=== PATIENT | female | born 1980 | race Caucasian/White ===

== ENCOUNTER 2016-11-16 21:02 | Inpatient (IN) | payer OTHER ==
[2016-11-16] MEDS ORDERED: NS 1,000 ML IV ONE (21:38)
[2016-11-16] MEDS ORDERED: ONDANSETRON 4 MG/2 ML VIAL IVP ONE (21:39)
[2016-11-16] MEDS ORDERED: HYDROmorphONE/DILAUDID 1 MG/ML INJ IVP ONE ×2 (21:56→22:34)
[2016-11-16 22:00] LABS: % IMMATURE GRANULYOCYTES 0.4 % (0.0-1.1); ABSOLUTE IMMATURE GRANULOCYTES 0.07 10^3/uL (0.00-0.10); ADD DIFF? NO; ADD MORPH? NO; ADD SCAN? NO; ATYPICAL LYMPHOCYTE FLAG 0 (0-99); FRAGMENT RBC FLAG 0 (0-99); HEMATOCRIT 44.8 % (38.0-47.0); HEMOGLOBIN 15.1 g/dL (12.6-16.3); LEFT SHIFT FLG 0 (0-99); LIPEMIA HEMOLYSIS FLAG 80 (0-99); MEAN CELL HEMOGLOBIN 28.3 pg (27.9-34.1); MEAN CELL HEMOGLOBIN CONCENTR. 33.7 g/dL (32.4-36.7); MEAN CELL VOLUME 84.1 fL (81.5-99.8); MEAN PLATELET VOLUME 9.8 fL (8.7-11.7); PLATELET CLUMPS FLAG 0 (0-99); PLATELET COUNT 416 10^3/uL (150-400); RED BLOOD CELL COUNT 5.33 10^6/uL (4.18-5.33); RED CELL DISTRIBUTION WIDTH 13.6 % (11.5-15.2)
[2016-11-16 22:07] LABS: ALANINE AMINOTRANSFERASE 479 IU/L (9-52); ALBUMIN 4.9 g/dL (3.5-5.0); ALKALINE PHOSPHATASE 110 IU/L (38-126); ANION GAP 18 mEq/L (8-16); ASPARTATE AMINOTRANSFERASE 453 IU/L (14-46); BILIRUBIN,TOTAL 3.7 mg/dL (0.1-1.4); CALCIUM 10.4 mg/dL (8.5-10.4); CARBON DIOXIDE 23 mEq/l (22-31); CHLORIDE 102 mEq/L (97-110); CREATININE 0.8 mg/dL (0.6-1.0); GLOMERULAR FILTRATION RATE > 60; GLUCOSE 175 mg/dL (70-100); SODIUM 143 mEq/L (134-144); TOTAL PROTEIN 8.5 g/dL (6.3-8.2)
[2016-11-16 22:18] LABS: BILIRUBIN-UNCONJUGATED 0.7 mg/dL (0.0-1.1)
--- NOTE | 2016-11-16 22:30 | EDPHY ---
H & P Stated Complaint: mid abd pain with multipe episodes vomiting started aprox 1400 today Source: Patient Exam Limitations: No limitations - Personal History LMP (Females 10-55): 1-7 Days Ago - Medical/Surgical History Hx Asthma: No Hx Chronic Respiratory Disease: No Hx Diabetes: No Hx Cardiac Disease: No Hx Renal Disease: No Hx Cirrhosis: No Hx Alcoholism: No Hx HIV/AIDS: No Hx Splenectomy or Spleen Trauma: No Other PMH: Med hx-hypothyroidism,acne. Surg-[id number]-prk - Family History Significant Family History: No pertinent family hx - Social History Smoking Status: Never smoked Alcohol Use: Occasionally Drug Use: None Time Seen by Provider: 11/16/16 21:39 HPI/ROS: This patient presents with mid abdominal pain and periumbilical pain onset mid afternoon with 5 episodes of vomiting since ongoing nausea. She reports 7 in 10 achy pain with occasional sharp pains. This does radiate a bit to her back. She has not had this pain before. She notes some worsening with movement and notes no other exacerbating factors. She is brought in by her mother for further evaluation of her symptoms. No other complaints. No other exacerbating factors noted. ROS: Constitutional: No fevers HEENT: No recent URI symptoms or other complaints on pulmonary: No shortness of breath. Cardiovascular: No heart palpitations or chest pain GI: No belly distention. No hematemesis. No coffee-ground emesis. : No complaints Integumentary: No skin rash. Her lips appear pale currently but her mother process baseline for this patient. Neuro: No complaints Endocrine: No complaints Completely symptoms otherwise negative. (Eze Blas) - Medical/Surgical History PMH: No prior belly surgery. (Eze Blas) - Physical Exam Exam: Vital signs normal. General Appearance: Alert, no distress. Eyes: Pupils equal and round no pallor or injection. ENT, Mouth: Mucous membranes moist. Respiratory: There are no retractions, lungs are clear to auscultation. Cardiovascular: Regular rate and rhythm. Gastrointestinal: Normoactive to slightly hypoactive bowel sounds, soft, mild epigastric tenderness and moderate right upper quadrant tenderness. No rebound tenderness. Neurological: GCS 15 Skin: Warm and dry, no rashes. Musculoskeletal: Neck is supple nontender. Extremities are symmetrical, full range of motion. Psychiatric: Mood and affect normal DIFFERENTIAL DIAGNOSIS: After history and physical exam differential diagnosis was considered for cholecystitis, hepatitis, pancreatitis, gastritis (Eze Blas) Constitutional: Initial Vital Signs Temperature (C) 97.7 F 11/16/16 21:30 Heart Rate 98 11/16/16 21:30 Respiratory Rate 16 11/16/16 21:30 Blood Pressure 118/83 H 11/16/16 21:30 O2 Sat (%) 96 11/16/16 21:30 O2 Delivery Mode Room Air Allergies/Adverse Reactions: neomycin Allergy (Verified 11/16/16 21:29) Home Medications: Medication Instructions Recorded Bcp 11/16/16 Levothyroxine [Synthroid 88 mcg 11/16/16 (*)] Multi-Day Vitamins 11/16/16 Spironolactone [Aldactone] 11/16/16 Medical Decision Making ED Course/Re-evaluation: IV normal saline bolus Zofran with some relief Dilaudid with minimal relief Upon reviewing labs with significantly elevated lipase and LFTs, called an medical equipment technician to perform gallbladder ultrasound for possible gallstone pancreatitis. Toradol IV and repeat Dilaudid Ordered 2 more L of saline bolus I spoke with Dr. Liza Alcala, hospitalist at [facility] accepts patient for admission to a [facility] bed. I spoke with Dr. Vianca Lutz, [facility] for the [facility] [employer] who will follow up with the gallbladder ultrasound results. Patient awaits a bed at [facility] for her admission. (Eze Blas) Other Provider: Patient signed out to me at change of shift by Dr. Blas, awaiting abdominal US prior to admission. Patient has elevated LFTs and and elevated lipase. US verbal report by Dr. Flores shows a few gallstones, no significant inflammation , coarsened pancreas consistent with pancreatitis and no CBD dilatation. Patient is more comfortable at this time. Awaiting transport to [facility]. (Domenica Lutz) - Data Points Laboratory Results: Laboratory Results 11/16/16 21:45 11/16/16 21:45 11/16/16 11/16/16 11/16/16 21:45 21:45 21:45 WBC 18.08 10^3/uL H 10^3/uL (3.80-9.50) RBC 5.33 10^6/uL 10^6/uL (4.18-5.33) Hgb 15.1 g/dL g/dL (12.6-16.3) Hct 44.8 % % (38.0-47.0) MCV 84.1 fL fL (81.5-99.8) MCH 28.3 pg pg (27.9-34.1) MCHC 33.7 g/dL g/dL (32.4-36.7) RDW 13.6 % % (11.5-15.2) Plt Count 416 10^3/uL H 10^3/uL (150-400) MPV 9.8 fL fL (8.7-11.7) Neut % (Auto) 89.3 % H % (39.3-74.2) Lymph % (Auto) 5.0 % L % (15.0-45.0) Highlands % (Auto) 5.0 % % (4.5-13.0) Eos % (Auto) 0.1 % L % (0.6-7.6) Baso % (Auto) 0.2 % L % (0.3-1.7) Nucleat RBC Rel Count 0.0 % % (0.0-0.2) Absolute Neuts (auto) 16.14 10^3/uL H 10^3/uL (1.70-6.50) Absolute Lymphs (auto) 0.90 10^3/uL L 10^3/uL (1.00-3.00) Absolute Monos (auto) 0.91 10^3/uL H 10^3/uL (0.30-0.80) Absolute Eos (auto) 0.02 10^3/uL L 10^3/uL (0.03-0.40) Absolute Basos (auto) 0.04 10^3/uL 10^3/uL (0.02-0.10) Absolute Nucleated RBC 0.00 10^3/uL 10^3/uL (0-0.01) Immature Gran % 0.4 % % (0.0-1.1) Immature Gran # 0.07 10^3/uL 10^3/uL (0.00-0.10) PT INR APTT Sodium 143 mEq/L mEq/L (134-144) Potassium 4.0 mEq/L mEq/L (3.5-5.2) Chloride 102 mEq/L mEq/L (97-110) Carbon Dioxide 23 mEq/l mEq/l (22-31) Anion Gap 18 mEq/L H mEq/L (8-16) BUN 9 mg/dL mg/dL (7-23) Creatinine 0.8 mg/dL mg/dL (0.6-1.0) Estimated GFR > 60 Glucose 175 mg/dL H mg/dL (70-100) Calcium 10.4 mg/dL mg/dL (8.5-10.4) Total Bilirubin 3.7 mg/dL H mg/dL (0.1-1.4) Conjugated Bilirubin 3.0 mg/dL H mg/dL (0.0-0.5) Unconjugated Bilirubin 0.7 mg/dL mg/dL (0.0-1.1) AST 453 IU/L H IU/L (14-46) ALT 479 IU/L H IU/L (9-52) Alkaline Phosphatase 110 IU/L IU/L (38-126) Total Protein 8.5 g/dL H g/dL (6.3-8.2) Albumin 4.9 g/dL g/dL (3.5-5.0) Lipase > 85965 IU/L H IU/L (23-300) Beta HCG, Qual NEGATIVE 11/16/16 21:40 WBC RBC Hgb Hct MCV MCH MCHC RDW Plt Count MPV Neut % (Auto) Lymph % (Auto) Highlands % (Auto) Eos % (Auto) Baso % (Auto) Nucleat RBC Rel Count Absolute Neuts (auto) Absolute Lymphs (auto) Absolute Monos (auto) Absolute Eos (auto) Absolute Basos (auto) Absolute Nucleated RBC Immature Gran % Immature Gran # PT 11.8 SEC L SEC (12.0-15.0) INR 0.89 (0.83-1.16) APTT 20.0 SEC L SEC (23.0-38.0) Sodium Potassium Chloride Carbon Dioxide Anion Gap BUN Creatinine Estimated GFR Glucose Calcium Total Bilirubin Conjugated Bilirubin Unconjugated Bilirubin AST ALT Alkaline Phosphatase Total Protein Albumin Lipase Beta HCG, Qual Medications Given: Discontinued Medications Hydromorphone HCl (Dilaudid) 0.4 mg IVP EDNOW ONE Stop: 11/16/16 21:57 Last Admin: 11/16/16 22:00 Dose: 0.4 mg Hydromorphone HCl (Dilaudid) 0.4 mg IVP EDNOW ONE Stop: 11/16/16 22:35 Last Admin: 11/16/16 23:09 Dose: 0.4 mg Sodium Chloride (Ns) 1,000 mls @ 0 mls/hr IV ONCE ONE PRN Reason: Wide Open Stop: 11/16/16 21:39 Last Admin: 11/16/16 21:51 Dose: 1,000 mls Sodium Chloride (Ns) 2,000 mls @ 0 mls/hr IV EDNOW ONE; Wide Open PRN Reason: Protocol Stop: 11/16/16 22:33 Last Admin: 11/16/16 23:08 Dose: 2,000 mls Ketorolac Tromethamine (Toradol) 15 mg IVP EDNOW ONE Stop: 11/16/16 22:35 Last Admin: 11/16/16 22:38 Dose: 15 mg Ondansetron HCl (Zofran) 4 mg IVP EDNOW ONE Stop: 11/16/16 21:40 Last Admin: 11/16/16 21:58 Dose: 4 mg Departure - Departure Disposition: [facility] Inpatient Acute Clinical Impression: Acute pancreatitis Qualifiers: Pancreatitis type: biliary Acute pancreatitis complication: unspecified Qualified Code(s): K85.10 - Biliary acute pancreatitis without necrosis or infection Condition: Fair
[2016-11-16] MEDS ORDERED: NS 2,000 ML IV ONE (22:32)
[2016-11-16] MEDS ORDERED: KETOROLAC 15 MG/1 ML SDV IVP ONE (22:34)
[2016-11-16 23:42] LABS: INR 0.89 (0.83-1.16); PROTIME(PATIENT) 11.8 SEC (12.0-15.0)
[2016-11-17] MEDS ORDERED: HYDROmorphONE/DILAUDID 1 MG/ML INJ IVP ONE (01:03)
[2016-11-17] MEDS ORDERED: HYDROmorphONE/DILAUDID 1 MG/ML INJ ONE (01:04)
[2016-11-17] MEDS: ONDANSETRON 4 MG/2 ML VIAL IVP PRN ×4 (02:58→18:26)
[2016-11-17] MEDS ORDERED: D50W 25 GM/50 ML SYR IVP PRN (03:31)
[2016-11-17 03:39] LABS: COLOR YELLOW; LEUKOCYTE ESTERASE,URINE NEGATIVE (NEGATIVE); NITRITE,URINE NEGATIVE (NEGATIVE)
[2016-11-17] MEDS: HYDROmorphONE/DILAUDID 1 MG/ML INJ IVP PRN ×3 (03:46→21:39)
[2016-11-17] MEDS ORDERED: D10W 250 ML PRN HYPOGLYCEMIA IV (04:00)
--- NOTE | 2016-11-17 04:57 | GHP ---
[f rep st] HISTORY AND PHYSICAL DATE OF ADMISSION: 11/17/2016 PRIMARY CARE PHYSICIAN: Unassigned. SOURCE: The patient provides history, appears reliable. Her EMR was also reviewed and case discusse d with ED provider. CHIEF COMPLAINT: Epigastric pain, nausea, vomiting. HISTORY OF PRESENT ILLNESS: This is a very pleasant 36-year-old female with past medical history sig nificant for hypothyroidism, seasonal allergies, cystic acne, hyperlipidemia, who [place] [facility] [place] [facility] [place] complaints of a several hour history of nausea, vomiting, and epigastri c pain. The patient reports that she was in her usual state of health until about 2:00 pm when she s tarted to develop epigastric aching pain with radiation to her back. The patient subsequently develo ped some intractable nausea and vomiting without any hematemesis. She denies any fevers, positive ch ills, felt cold and clammy. She reports her pain was as high as 7/10 pain with intermittent sharp pa ins. She denies any diarrhea, lower abdominal pain, or bloating. REVIEW OF SYSTEMS: GENERAL: Positive for chills. No fevers or sweats. SKIN: The patient reports h istory of acne, but no other rashes or sores. EYES: The patient denies any acute changes in vision or ocular pain. ENT: No congestion or sore throat. CV: The patient denies any chest pressure or p ain, but notes the upper abdominal lower chest epigastric pain. No lower extremity edema. RESPIRATO RY: Denies any shortness of breath or cough. GI: See HPI. : No dysuria or hematuria. MUSCULOS KELETAL: The patient denies any myalgias or joint pain. NEURO: The patient reports a little bit of headache with the onset of symptoms. No numbness, tingling, or focal weakness. PSYCH: The patient denies anxiety or depression. ALLERGIES: Neomycin, and the patient is lactose intolerant. HOME MEDICATIONS: Spironolactone for cystic acne, multivitamin, levothyroxine, control pill, a nd red rice yeast. PAST MEDICAL HISTORY: History significant for hypothyroidism, seasonal allergies, cystic acne, hyper lipidemia. PAST SURGICAL HISTORY: Significant for PRK and wisdom tooth extraction. FAMILY HISTORY: Mother with osteoarthritis and hyperlipidemia. Father with hyperlipidemia, hyperten soniya, and kidney stones. The patient with an aunt with gallbladder disease and [facility] with history of cancers. SOCIAL HISTORY: The patient is employed as RN at [employer]. She does not smoke. She h as rare alcohol consumption and denies any illicit drug use. The patient without any recent alcohol intake. CODE STATUS: Full. PHYSICAL EXAMINATION: VITAL SIGNS: Upon arrival to the emergency department, blood pressure 118/83, heart rate 98, respiratory rate 16, O2 saturation 96% on room air, temperature 36.5. Current vitals blood pressure 134/81, heart rate is 119, respiratory rate 14, O2 saturation 94% on room air, temper ature is 36.9. GENERAL: No acute distress. Pleasant adult female, who is resting quietly in bed. Her mother is at bedside. HEAD: Normocephalic, atraumatic. EYES: Extraocular muscles grossly inta ct. No scleral icterus or conjunctival injection. Pupils equal, round, react to light bilaterally a nd symmetric. ENT: Mucous membranes appear dry. No oropharyngeal erythema. Dentition intact. No nasal discharge. NECK: Supple. Trachea midline. CV: Regular rate and rhythm. Slightly tachycard ic without any murmurs, rubs, or gallops. Slightly distant heart sounds. No chest wall tenderness t o palpation. RESPIRATORY: Lungs are clear to auscultation bilaterally. No wheezes, rales, or rhonc hi. Breathing is unlabored. ABDOMEN: Hypoactive bowel sounds with tenderness to palpation in the e pigastric right upper quadrant region. Patient with negative Arriaga sign. No rebound or guarding ap preciated. Abdomen is not distended. : No suprapubic tenderness to palpation. No Washington catheter in place. MUSCULOSKELETAL: The patient's strength 5/5 in upper and lower extremities. The patient is able to sit up independently. NEURO: Cranial nerves grossly really normal. No focal deficits. Strength normal in extremities. PSYCH: Thought process content and questions are appropriate. The patient is awake, alert, and oriented x4. LABORATORY STUDIES: WBC is 18.0, H and H 15.1, 44.8, MCV of 84.1, platelet count is 416, 89.3% neutr ophils, no bands. PT is 11.8, INR 0.89, PTT is 20.0. Sodium is 143, potassium is 4.0, chloride 102, CO2 is 23, anion gap 18, BUN 9, creatinine 0.8, GFR gr eater than 60. Glucose is 175. Total bilirubin is 3.4, conjugated 3.0, unconjugated 0.7, ALT 479, A ST 453, alkaline phosphatase 110, total protein is 8.5, albumin is 4.9, lipase is greater than 20,000 . Beta HCG is negative. IMAGING: Abdominal ultrasound, report reviewed. Significant for cholelithiasis and coarsened echoge nicity in the pancreas seen with pancreatitis, common bile duct measuring 5 mm. No evidence of gallb ladder wall thickening, hyperemia, or pericholecystic fluid. ASSESSMENT AND PLAN: This is a pleasant 36-year-old female with history of hypothyroidism, hyperlipi demia, who presents to the emergency department with sudden onset epigastric pain, nausea, vomiting. 1. Pancreatitis, acute, likely secondary to cholelithiasis. Ultrasound was negative for any evidenc e of common bile duct dilation. The patient has significantly elevated LFTs as well as bilirubin. S he continues to have some epigastric pain. No history of chronic alcohol dependence. We will check an MRCP in the morning. 2. Acute abdominal pain. Dilaudid and Ativan available p.r.n. for pain. 3. Intractable nausea, vomiting, now improved. Continue Zofran, Phenergan for antiemetics. Additio michelle, Ativan will be available for spasm or nausea as well as addition of Benadryl for itching or na usea. 4. Cholelithiasis. Further evaluation as noted above. Further consideration for surgical evaluatio n once the patient's pancreatitis has improved, deferred to day team. 5. Systemic inflammatory response syndrome. Patient with a leukocytosis greater than 18,000, tachyc ardia, but likely a response to acute pancreatitis and not infectious process. We will continue to m onitor. 6. Hyperglycemia in setting of acute pancreatitis is likely related. No previous history of diabete s. Discussed with the patient, will add insulin sliding scale at this time. 7. Thrombocytosis. Is likely reactive. Continue to monitor a.m. CBC. 8. Transaminitis and hyperbilirubinemia. Monitor LFTs. MRCP as above. No again no evidence curren tly on ultrasound of biliary dilation or obstruction on imaging. The patient's chronic medical conditions: 1. Hypothyroidism. IV dosing at half oral dose while n.p.o. 2. Seasonal allergies. Benadryl will be available p.r.n. 3. Cystic acne. Holding spironolactone at this time, as well as the patient's oral contraceptive pi ll as she is n.p.o. 4. Hyperlipidemia. Holding red rice yeast, which the patient takes at home. We will also check a t riglyceride level as the patient reports history of hypertriglyceridemia that has been diet controlle d. 5. Fluid, electrolyte, nutrition. Status post 2 L in the emergency department. Continue with aggre ssive IV fluid hydration. Monitor electrolytes and replace if needed. The patient's diet will be n. p.o. status. 6. Prophylaxis. Sequential compression devices and Lovenox have been added. 7. Code status is full. 8. Disposition. The patient admitted to inpatient status, given severity of her transaminitis and p ancreatitis. I anticipate the patient will require greater than 2 midnight stay. /[id number]/MODL
[2016-11-17] MEDS: ACETAMINOPHEN 650 MG SUPP PR PRN ×3 (05:18→21:38)
[2016-11-17] MEDS: INSULIN LISPRO 100 UNIT/ML SC SCH ×3 (05:31→17:51)
[2016-11-17 05:47] LABS: % IMMATURE GRANULYOCYTES 0.5 % (0.0-1.1); ABSOLUTE IMMATURE GRANULOCYTES 0.08 10^3/uL (0.00-0.10); ADD DIFF? NO; ADD MORPH? NO; ADD SCAN? NO; ATYPICAL LYMPHOCYTE FLAG 0 (0-99); FRAGMENT RBC FLAG 0 (0-99); HEMOGLOBIN 12.8 g/dL (12.6-16.3); LEFT SHIFT FLG 0 (0-99); LIPEMIA HEMOLYSIS FLAG 80 (0-99); MEAN CELL HEMOGLOBIN 28.9 pg (27.9-34.1); MEAN CELL HEMOGLOBIN CONCENTR. 33.7 g/dL (32.4-36.7); MEAN CELL VOLUME 85.8 fL (81.5-99.8); MEAN PLATELET VOLUME 9.9 fL (8.7-11.7); PLATELET CLUMPS FLAG 0 (0-99); PLATELET COUNT 324 10^3/uL (150-400); RED BLOOD CELL COUNT 4.43 10^6/uL (4.18-5.33); RED CELL DISTRIBUTION WIDTH 13.7 % (11.5-15.2)
[2016-11-17 05:58] LABS: INR 0.96 (0.83-1.16); PROTIME(PATIENT) 12.7 SEC (12.0-15.0)
[2016-11-17 05:59] LABS: APTT 21.6 SEC (23.0-38.0)
[2016-11-17 06:03] LABS: ALANINE AMINOTRANSFERASE 340 IU/L (9-52); ALBUMIN 3.8 g/dL (3.5-5.0); ALKALINE PHOSPHATASE 84 IU/L (38-126); ANION GAP 10 mEq/L (8-16); ASPARTATE AMINOTRANSFERASE 217 IU/L (14-46); BILIRUBIN,TOTAL 1.2 mg/dL (0.1-1.4); CALCIUM 9.1 mg/dL (8.5-10.4); CARBON DIOXIDE 23 mEq/l (22-31); CHLORIDE 107 mEq/L (97-110); CREATININE 0.8 mg/dL (0.6-1.0); GLOMERULAR FILTRATION RATE > 60; GLUCOSE 103 mg/dL (70-100); MAGNESIUM 1.8 mg/dL (1.6-2.3); POTASSIUM 3.9 mEq/L (3.5-5.2); SODIUM 140 mEq/L (134-144); TOTAL PROTEIN 6.9 g/dL (6.3-8.2); TRIGLYCERIDE 67 mg/dL (35-135)
[2016-11-17 06:12] LABS: AMYLASE 1873 IU/L (30-110)
--- NOTE | 2016-11-17 07:01 | PDMN ---
Medical Necessity Medical necessity: C/M review: Pt. meets INPT criteria per MCG M-250 Pancreatitis; Acute pancreatitis, transaminitis, hyperbilirubinemia, intractable nausea / vomiting, abdominal pain, cholelithiasis, SIRS, WBC 18.08, total bilirubin 3.7, AST 453, ALT 479, Lipase > 69004. requiring ongoing NPO, IV fluids, IV antiemetics, IV Dilaidid, comorbid hypothyroidism, hyperlipidemia ; anticipates > 2 MN LOS for ongoing medical necessity for eval and TX of above.
[2016-11-17] MEDS: LORazepam 2 MG/ML INJ IVP PRN ×2 (07:22→13:37)
[2016-11-17] MEDS ORDERED: GADOBUTROL 10 ML VIAL IVP ONE (08:32)
[2016-11-17] MEDS: LEVOTHYROXINE 100 MCG/5 ML SYR IVP SCH (08:37)
--- NOTE | 2016-11-17 09:30 | HOSPPROG ---
Hospitalist Progress Note Assessment/Plan: 36-year-old with a history of hypertension and hypothyroidism is admitted with acute abdominal pain. Evaluation is consistent with gallstone pancreatitis. # pancreatitis likely secondary to gallstones. MRCP pending this morning. * Supportive care * Discussed with surgery * Follow-up labs # history of hypertension on spironolactone. Since she is NPO Will hold the diuretic at this time and monitor her blood pressure can add p.r.n. IV medications as needed # hypothyroidism resume her levothyroxine. # DVT prophylaxis currently on Lovenox. Subjective: Patient new to me and chart reviewed ongoing abdominal pain slightly improved from admission. Objective: Vital Signs Temp Pulse Resp BP Pulse Ox 36.9 C 95 16 115/94 H 93 11/17/16 07:10 11/17/16 07:10 11/17/16 07:10 11/17/16 07:10 11/17/16 07:10 Laboratory Results 11/17/16 05:33 11/17/16 05:33 11/16/16 11/17/16 11/18/16 05:59 05:59 05:59 Intake Total 0 Output Total 300 100 Balance -300 -100 PT 12.7 SEC (12.0-15.0) 11/17/16 05:33 INR 0.96 (0.83-1.16) 11/17/16 05:33 - Physical Exam Constitutional: uncomfortable Eyes: PERRL, EOMI Ears, Nose, Mouth, Throat: moist mucous membranes Cardiovascular: regular rate and rhythym Respiratory: no respiratory distress, clear to auscultation Gastrointestinal: tenderness, No normoactive bowel sounds (Decreased), No guarding Genitourinary: no bladder fullness Skin: warm, normal color Musculoskeletal: full muscle strength, no muscle tenderness Neurologic: AAOx3 Psychiatric: interacting appropriately, not anxious, not encephalopathic ICD10 Worksheet Patient Problems: Problems Problem Status Onset Acute pancreatitis Acute
[2016-11-17] MEDS: ENOXAPARIN 40 MG/0.4 ML SYR SC SCH (10:02)
[2016-11-17] MEDS: NS 1,000 ML IV SCH ×2 (13:00→21:38)
--- NOTE | 2016-11-17 15:30 | ASMTCMCOM ---
CM Note CM Note Notes: Pt was admitted with acute pancreatitis which may be related to gallstones. Surgery input requested. Hx HTN. CM will follow for any d/c needs. Date Signed: 11/17/2016 03:30 PM Electronically Signed By:SAJI Randall
--- NOTE | 2016-11-17 19:22 | PDGENHP ---
History & Physical Chief Complaint: abd pain History of Present Illness: 36 female with gallstone pancreatitis and lipase> 08121, lfts elevated. acute onset of pain 2 days ago/ us shows stones/ mrcp results pending/. risks and options fully discussed Pertinent Past, Social, Family History: pmh: hypothyroidism/ PRK/ wisdom teeth/ acne. meds: synthroid, spironolactone. all: neomycin. ros -10 pt review. fam hx - Relevant Physical Exam: gen: healthy 36 female reasonably comfortable, afebrile. heent nonicteric, no nodes, supple, clifford. chest clear. cor rr. abd soft, tender ruq, no masses. extr: full pulses, full rom. neuro ok. skin no lesions Cardiorespiratory Assessment: IMP: GALLSTONE PANCREATITIS/ RISKS AND OPTIONS FULLY DISCUSSED. PLAN LAP CLOTILDE WITH GRAMS WHEN LIPASE DOWN/ CHECK MRCP
--- NOTE | 2016-11-17 19:49 | SOAPPROG ---
SOHERNANDEZ Progress Note Assessment/Plan: Assessment: MRCP SUGGESTS MULTIPLE CD STONES Plan:WILL NEED ERCP IN CONJUNCTION OR BEFORE LAP CLOTILDE 11/17/16 19:48 Objective: Vital Signs Temp Pulse Resp BP Pulse Ox 37.7 C 111 H 20 125/86 H 94 11/17/16 19:27 11/17/16 19:27 11/17/16 19:27 11/17/16 19:27 11/17/16 19:27 Laboratory Results 11/17/16 05:33 11/17/16 05:33 11/16/16 11/17/16 11/18/16 05:59 05:59 05:59 Intake Total 0 1500 Output Total 300 750 Balance -300 750 PT 12.7 SEC (12.0-15.0) 11/17/16 05:33 INR 0.96 (0.83-1.16) 11/17/16 05:33 ICD10 Worksheet Patient Problems: Problems Problem Status Onset Acute pancreatitis Acute
[2016-11-17] MEDS: DOCUSATE SODIUM 100 MG CAP PO SCH (21:54)
[2016-11-17] MEDS: PIPERACILLIN/TAZO 4.5 GM/DEX 100 ML IV SCH (23:16)
[2016-11-18] MEDS: INSULIN LISPRO 100 UNIT/ML SC SCH ×4 (01:16→19:20)
[2016-11-18] MEDS: HYDROmorphONE/DILAUDID 1 MG/ML INJ IVP PRN ×3 (03:03→21:42)
[2016-11-18] MEDS: ACETAMINOPHEN 650 MG SUPP PR PRN ×2 (03:03→07:34)
[2016-11-18] MEDS: NS 1,000 ML IV SCH ×2 (04:38→13:15)
[2016-11-18] MEDS: PIPERACILLIN/TAZO 4.5 GM/DEX 100 ML IV SCH ×2 (04:38→11:17)
[2016-11-18 05:32] LABS: % IMMATURE GRANULYOCYTES 0.6 % (0.0-1.1); ABSOLUTE IMMATURE GRANULOCYTES 0.11 10^3/uL (0.00-0.10); ADD DIFF? NO; ADD MORPH? NO; ADD SCAN? NO; ATYPICAL LYMPHOCYTE FLAG 0 (0-99); FRAGMENT RBC FLAG 0 (0-99); HEMOGLOBIN 11.9 g/dL (12.6-16.3); LEFT SHIFT FLG 10 (0-99); LIPEMIA HEMOLYSIS FLAG 90 (0-99); MEAN CELL HEMOGLOBIN 28.8 pg (27.9-34.1); MEAN CELL VOLUME 84.7 fL (81.5-99.8); MEAN PLATELET VOLUME 10.1 fL (8.7-11.7); PLATELET CLUMPS FLAG 10 (0-99); PLATELET COUNT 262 10^3/uL (150-400); RED BLOOD CELL COUNT 4.13 10^6/uL (4.18-5.33)
[2016-11-18 05:54] LABS: ALANINE AMINOTRANSFERASE 172 IU/L (9-52); ALBUMIN 3.2 g/dL (3.5-5.0); ALKALINE PHOSPHATASE 65 IU/L (38-126); AMYLASE 475 IU/L (30-110); ANION GAP 12 mEq/L (8-16); ASPARTATE AMINOTRANSFERASE 52 IU/L (14-46); CALCIUM 8.4 mg/dL (8.5-10.4); CARBON DIOXIDE 20 mEq/l (22-31); CHLORIDE 104 mEq/L (97-110); CREATININE 0.6 mg/dL (0.6-1.0); GLOMERULAR FILTRATION RATE > 60; GLUCOSE 83 mg/dL (70-100); POTASSIUM 3.6 mEq/L (3.5-5.2); SODIUM 136 mEq/L (134-144); TOTAL PROTEIN 5.8 g/dL (6.3-8.2)
[2016-11-18] MEDS: NORETHINDRONE E ESTRADIOL IRON PO SCH (07:19)
[2016-11-18] MEDS: LORazepam 2 MG/ML INJ IVP PRN (07:34)
[2016-11-18] MEDS: LEVOTHYROXINE 100 MCG/5 ML SYR IVP SCH (10:00)
--- NOTE | 2016-11-18 10:23 | SOAPPROG ---
KULWANT Progress Note Assessment/Plan: Assessment/Plan: 36 Y F gallstone pancreatitis, cholelithiasis, choledocholithiasis. Labs and symptoms improving. Consulting GI--waiting for input. Could go to OR today or tomorrow for lap elaine c IOC versus having ERCP first. Seen and examined with Dr. Lacey. S: less abd pain, but still present. no n/v. O: alert, nad no jaundice no wob rrr abd soft, +ruq epigastric tenderness 11/18/16 10:17 Objective: Vital Signs Temp Pulse Resp BP Pulse Ox 37.2 C 93 20 118/87 H 98 11/18/16 07:41 11/18/16 07:41 11/18/16 07:41 11/18/16 07:41 11/18/16 07:41 Laboratory Results 11/18/16 04:46 11/18/16 04:46 11/17/16 11/18/16 11/19/16 05:59 05:59 05:59 Intake Total 0 3579 Output Total 300 1750 Balance -300 1829 PT 12.7 SEC (12.0-15.0) 11/17/16 05:33 INR 0.96 (0.83-1.16) 11/17/16 05:33 ICD10 Worksheet Patient Problems: Problems Problem Status Onset Acute pancreatitis Acute
[2016-11-18] MEDS: ENOXAPARIN 40 MG/0.4 ML SYR SC SCH (10:36)
--- NOTE | 2016-11-18 11:33 | HOSPPROG ---
Hospitalist Progress Note Assessment/Plan: 36-year-old with a history of hypertension and hypothyroidism is admitted with acute abdominal pain. Evaluation is consistent with gallstone pancreatitis. # pancreatitis likely secondary to gallstones. Pain improving this morning. * Possible lap choly later today or tomorrow. * GI consult for possible ERCP prior to surgery versus intraoperative cholangiogram # fever in the setting of acute gallstone pancreatitis, will treat with Invanz I do not think she needs broad-spectrum antibiotics at this time # history of hypertension on spironolactone. Since she is NPO Will hold the diuretic at this time and monitor her blood pressure can add p.r.n. IV medications as needed # hypothyroidism resume her levothyroxine. # 7.8 mm renal mass noted on MRI. Will have patient follow up with Urology as outpatient after her procedure here. They can decide on further imaging at that time. We will give her copy of her studies prior to discharge. # DVT prophylaxis currently on Lovenox. Subjective: Feeling better today. Has ongoing pain but lessened Objective: Vital Signs Temp Pulse Resp BP Pulse Ox 37.2 C 93 20 118/87 H 98 11/18/16 07:41 11/18/16 07:41 11/18/16 07:41 11/18/16 07:41 11/18/16 07:41 Laboratory Results 11/18/16 04:46 11/18/16 04:46 11/17/16 11/18/16 11/19/16 05:59 05:59 05:59 Intake Total 0 3579 Output Total 300 1750 Balance -300 1829 PT 12.7 SEC (12.0-15.0) 11/17/16 05:33 INR 0.96 (0.83-1.16) 11/17/16 05:33 - Physical Exam Constitutional: appears nourished, uncomfortable Eyes: PERRL, EOMI Ears, Nose, Mouth, Throat: moist mucous membranes Cardiovascular: regular rate and rhythym, no murmur, rub, or gallop Respiratory: no respiratory distress, no rales or rhonchi, clear to auscultation , reduced air movement (Basis) Gastrointestinal: no palpable masses, tenderness, No normoactive bowel sounds ( Decrease) Genitourinary: no bladder fullness Skin: warm, normal color Musculoskeletal: full muscle strength Neurologic: AAOx3 Psychiatric: interacting appropriately ICD10 Worksheet Patient Problems: Problems Problem Status Onset Acute pancreatitis Acute
--- NOTE | 2016-11-18 12:41 | SOAPPROG ---
KULWANT Progress Note Assessment/Plan: Assessment: MRCP SUGGESTS MULTIPLE CD STONES Plan:WILL NEED ERCP IN CONJUNCTION OR BEFORE LAP CLOTILDE 11/17/16 19:48 11/18/16 12:40 AFEBRILE/VITAL SIGNS STABLE/MUCH MORE COMFORTABLE TODAY/ABDOMEN SOFT AND MINIMALLY TENDER/AMYLASE DOWN TO 400 PLAN GI CONSULT AND COORDINATION OF LAP CHOLY WITH POSSIBLE NEED FOR ERCP/RISKS AND OPTIONS WERE FULLY DISCUSSED Objective: Vital Signs Temp Pulse Resp BP Pulse Ox 37.1 C 96 16 121/80 H 100 11/18/16 11:58 11/18/16 11:58 11/18/16 11:58 11/18/16 11:58 11/18/16 11:58 Laboratory Results 11/18/16 04:46 11/18/16 04:46 11/17/16 11/18/16 11/19/16 05:59 05:59 05:59 Intake Total 0 3579 Output Total 300 1750 Balance -300 1829 PT 12.7 SEC (12.0-15.0) 11/17/16 05:33 INR 0.96 (0.83-1.16) 11/17/16 05:33 ICD10 Worksheet Patient Problems: Problems Problem Status Onset Acute pancreatitis Acute
--- NOTE | 2016-11-18 14:53 | GCON ---
[f rep st] CONSULTATION DATE OF CONSULTATION: 11/18/2016 REFERRING PHYSICIAN: Helio Lacey MD REASON FOR CONSULTATION: 1. Abdominal pain. 2. Acute pancreatitis. 3. Choledocholithiasis. HISTORY OF PRESENT ILLNESS: Thank you very kindly for asking me to evaluate your patient in consulta tion for a chief complaint of abdominal pain and acute pancreatitis that is believed to be gallstone related. She is a previously healthy 36-year-old female with underlying hyperlipidemia who has been working at weight loss to control her lipids and developed abdominal pain, nausea, and vomiting yeste rday. The pain was quite severe and epigastric in nature, reporting 8/10 and radiating into her back and constant. Today, she says the pain is dramatically improved and she feels much better than she did yesterday. She reports some chills but no overt fever or sweats. She denies any pruritus or jau ndice. There has been no change in her bowel habits, heartburn or hematemesis. She did have a coupl e of episodes of vomiting yesterday that were bilious and then clear at the onset of the pain. She h as never had similar discomfort prior to this episode. Workup in the hospital has shown cholelithiasis with normal ductal anatomy. This was performed on he r admission on November 16. The pancreas was slightly echogenic which can be seen with pancreatitis. The biliary anatomy was normal at 5 mm. An MRCP was performed today which revealed a dilated common bile duct with intrahepatic and extrahepatic dilatation to about 13 mm with multiple choledochal ston es. There was peripancreatic edema along the body and tail of the pancreas with some fluid in the le ft upper quadrant but no focal lesion. Her liver tests have been noted to be elevated, predominantly a transaminitis without cholestasis but her lipase was 10,281. I am asked to assist with further ev aluation and management. PAST MEDICAL HISTORY: 1. Hyperlipidemia, likely familial. 2. Cystic acne. 3. Hypothyroidism. PAST SURGICAL HISTORY: Radial keratotomy, wisdom tooth extraction. FAMILY HISTORY: Significant for hyperlipidemia in both her mother and father. Hypertension, renal s tones, previous gallbladder disease in a paternal aunt. MEDICATIONS: On admission include spironolactone, multivitamin, levothyroxine, control and red yeast rice. ALLERGIES: Neomycin, she is also lactose intolerant. SOCIAL HISTORY: The patient is an RN at the [employer]. No tobacco. Rare alcohol. No substance abuse. REVIEW OF SYSTEMS: CONSTITUTIONAL: Chills, general malaise, nausea. HEENT: No headache, visual di sturbances, sore throat, rhinorrhea or neck pain. PULMONARY: No cough or shortness, of breath. CAR DIOVASCULAR: No chest pain or palpitations. GI: Negative other than the HPI specifically denying d iarrhea, constipation, steatorrhea, melena, hematochezia or hematemesis. She notes the pain that she had last night is now down to a 3/10. RHEUMATOLOGIC: No joint pain or swelling. DERMATOLOGIC: No jaundice, rash or pruritus. NEUROLOGIC: No focal motor weakness, paresthesias or falls. GYNECOLOG IC: No vaginal discharge or bleeding. She denies and does take oral contraceptive medicat ions. GENITOURINARY: No dysuria, hematuria, or flank pain. PHYSICAL EXAM: VITAL SIGNS: Blood pressure reveals 121/80 with a mean arterial pressure of 93, resp irations are 16, pulse is 95. Her highest heart rate was 116, she has a sinus tachycardia on telemet ry, oxygenation is 100% on 2 L nasal cannula. T-max is 37.7 with a T-current of 37.1. GENERAL: Hea lthy young female in no acute distress. Alert and able to provide her own history. She seems comfor table today. HEENT: Normocephalic, atraumatic. Oropharynx clear. Neck is supple. No thrush. Scl erae are anicteric. PULMONARY: Clear to auscultation bilaterally with good air exchange. CARDIOVAS CULAR: Regular rate and rhythm without murmur, rub, or gallop. GI: The abdomen is soft and nontend er. There is no distention. Bowel sounds are hypoactive. No organomegaly. No ascites. No abdomin al bruit. MUSCULOSKELETAL: No joint deformity, swelling or warmth. DERMATOLOGIC: No jaundice, ama h or lesion. NEUROLOGIC: Alert to person, place, and time. Normal speech and affect. Motor is non focal. Gait is not assessed. LABORATORY DATA: Includes white blood count is 18.7, hematocrit 35.0, platelets are 262. Sodium is 136, potassium 3.6, chloride 104, bicarbonate 20, BUN is 6, creatinine 0.6. AST is 52, improved from 217 yesterday; ALT is 172, improved from 340 yesterday; amylase is 475, improved from 1873 yesterday ; lipase is 10,281 and has not been repeated; alkaline phosphatase is 65, and was normal yesterday at 84; total bilirubin is 1.0, down from 1.2 yesterday. IMPRESSION: 1. Epigastric abdominal pain. 2. Acute pancreatitis, likely gallstone related. 3. Elevated liver enzymes. 4. Abnormal magnetic resonance cholangiopancreatography documenting choledocholithiasis. 5. Cholelithiasis with likely an element of cholecystitis. RECOMMENDATIONS: 1. N.p.o. 2. IV antibiotics. 3. IV fluid resuscitation aggressively for acute pancreatitis. 4. Withhold any NSAIDs or blood thinners. 5. ERCP today will be performed to manage and treat the choledocholithiasis. 6. Surgical consultation for cholelithiasis and cholecystectomy to prevent future occurrences, depen chong on the results of the ERCP today. 7. Further recommendations to follow. /[id number]/MODL
[2016-11-18] MEDS ORDERED: GLUCAGON,HUMAN RECOMBINANT 1 MG VIAL ONE (15:03)
[2016-11-18] MEDS ORDERED: IOTHALAMATE MEG (CONRAY) 50 ML VIAL IV ONE (15:04)
--- NOTE | 2016-11-18 15:25 | PDANEPAE ---
ANE History of Present Illness ERCP for gall stone pancreatitis ANE Past Medical History - Pulmonary History Hx Oxygen in Use at Home: No Hx Sleep Apnea: No Sleep Apnea Screening Result - Last Documented: Negative - Endocrine History Hx Diabetes: No Hypothyroid: Yes Endocrine History Comment: dyslipidemia - Chronic Pain History Chronic Pain: No ANE Review of Systems Review of Systems: - Exercise capacity METS (RN): 4 METS ANE Patient History - Allergies Allergies/Adverse Reactions: neomycin Allergy (Severe, Verified 11/17/16 09:18) nickel Allergy (Severe, Verified 11/17/16 09:18) - Home Medications Home medications: home medication list seen and reviewed Home Medications: Docusate Sodium [Colace 100 MG (*)] 100 mg PO HS 11/17/16 [Last Taken 11/15/16] Herbals/Supplements -Info Only 1 ea PO DAILY 11/17/16 [Last Taken Unknown] Levothyroxine [Synthroid 88 mcg (*)] 88 mcg PO DAILY06 11/17/16 [Last Taken 08/26] Norethindrone-E.estradiol-Iron [Blisovi Fe 1.5-30 Tablet] 1 tab PO DAILY [Last Taken 11/15/16] Spironolactone [Aldactone 25 MG (*)] 50 mg PO DAILY 11/17/16 [Last Taken ] - NPO status NPO Status: no food or drink >8 hours NPO Since - Liquids (Date): 11/17/16 NPO Since - Liquids (Time): 06:00 NPO Since - Solids (Date): 11/17/16 NPO Since - Solids (Time): 06:00 - Anes Hx Anes Hx: no prior problems - Smoking Hx Smoking Status: Never smoked - Alcohol Use Alcohol Use: Occasionally - Family Anes Hx Family Anes Hx: none ANE Labs/Vital Signs - Labs Result Diagrams: 11/18/16 04:46 11/18/16 04:46 - Vital Signs Blood Pressure: 121/80 Heart Rate: 96 Respiratory Rate: 20 O2 Sat (%): 100 Height: 157.48 cm Weight: 70.1 kg ANE Physical Exam - Airway Neck exam: FROM Mallampati Score: Class 2 Mouth exam: normal dental/mouth exam - Pulmonary Pulmonary: no respiratory distress - Cardiovascular Cardiovascular: regular rate and rhythym - ASA Status ASA Status: II ANE Anesthesia Plan Anesthesia Plan: general endotracheal anesthesia (R/B/A explained and agrees to proceed)
[2016-11-18] MEDS ORDERED: fentaNYL 100 MCG/2 ML INJ ONE (15:29)
[2016-11-18] MEDS ORDERED: REMIFENTANIL HCL 1 MG VIAL ONE (15:29)
[2016-11-18] MEDS ORDERED: PROPOFOL/EMULSION 500 MG/50 ML BOTTLE IV ONE (15:29)
[2016-11-18] MEDS ORDERED: ONDANSETRON 4 MG/2 ML VIAL ONE (15:32)
[2016-11-18] MEDS ORDERED: DEXAMETHASONE 4 MG/ML VIAL ONE ×2 (15:32)
[2016-11-18] MEDS ORDERED: LIDOCAINE 2% 100 MG/5 ML SYR ONE (15:32)
[2016-11-18] MEDS ORDERED: INDOMETHACIN 50 MG SUPP PR ONE (15:41)
[2016-11-18] MEDS ORDERED: NALOXONE HCL 0.4 MG/ML INJ IVP PRN (16:11)
[2016-11-18] MEDS ORDERED: HYDROCODONE/APAP 5/325 TAB PO PRN (16:11)
[2016-11-18] MEDS ORDERED: ALBUTEROL 3 ML DEYVIAL IH PRN (16:11)
[2016-11-18] MEDS ORDERED: ONDANSETRON 4 MG/2 ML VIAL IVP PRN (16:11)
[2016-11-18] MEDS ORDERED: LR 500 ML IV PRN (16:11)
[2016-11-18] MEDS ORDERED: fentaNYL 100 MCG/2 ML INJ IVP PRN (16:11)
[2016-11-18] MEDS ORDERED: DEXAMETHASONE 4 MG/ML VIAL IVP PRN (16:11)
[2016-11-18] MEDS ORDERED: ACETAMINOPHEN 500 MG TAB PO PRN (16:11)
[2016-11-18] MEDS ORDERED: MEPERIDINE 25 MG/ML SYR IVP PRN (16:11)
[2016-11-18] MEDS ORDERED: METOCLOPRAMIDE 10 MG/2 ML VIAL IVP PRN (16:11)
[2016-11-18] MEDS ORDERED: OXYCODONE/APAP 5/325 TAB PO PRN (16:11)
[2016-11-18] MEDS ORDERED: LABETALOL HCL 5 MG/ML 20 ML MDV IVP PRN (16:11)
[2016-11-18] MEDS ORDERED: PROMETHAZINE HCL 25 MG/ML INJ IVP PRN (16:11)
--- NOTE | 2016-11-18 16:42 | GIREPORT ---
[facility] - Endoscopy Department Patient Name: Jazmin Stewart Procedure Date: 11/18/2016 3:29 PM Patient Type: Inpatient Attending MD/ ER Physician: Kyler Ward MD Procedure: ERCP Indications: Abdominal pain of suspected biliary origin, Abnormal MRCP, Bile duct stone(s), Elevated liver enzymes Providers: Kyler Ward MD Medicines: General Anesthesia, Indomethacin 100 mg DE, Invanz 1 g IV Complications: No immediate complications. Description of Procedure: After obtaining informed consent, the scope was passed under direct vision. Throughout the proce dure, the patient's blood pressure, pulse, and oxygen saturations were monitored continuously. The Duodenalscope was introduced through the mouth, and advanced to the duodenum and used to inject contrast into the bile duct. The ERCP was accomplished without difficulty. The patient tolerated the procedure well. Findings: The crib pad maker film was normal. The scope was advanced to a normal major papilla in the descending duodenum. Examination of the pharynx, larynx and associated structures, and upper GI tract was normal. The major papilla was bulging. The bile duct was deeply cannulated with the short-nosed traction sphincterotome. Contrast was injected. I personally interpreted the bile duct images. T here was brisk flow of contrast through the ducts. Image quality was excellent. Contrast extended to the bifurcation. The main bile duct was diffusely dilated, with multiple stones causing an obstructi on. The largest diameter of the duct was 12 mm. The lower third of the main bile duct, middle third of the main bile duct and upper third of the main bile duct contained multiple stones, the largest of which was 9 mm in diameter. The cystic duct was patent and the gallbladder revealed cholelithias is. A 0.035 inch straight standard wire was passed into the biliary tree. A 12 mm biliary sphincteroto my was made with a monofilament short nose sphincterotome using ERBE electrocautery. There was no post-sphincterotomy bleeding. The biliary tree was swept with a 12 mm balloon starting at the bifurcation. All stones were removed. Estimated Blood Loss: Estimated blood loss: none. Post Op Diagnosis: - The major papilla appeared to be bulging. - The entire main bile duct was dilated, with a stone causing an obstru ction. - Choledocholithiasis was found. Complete removal was accomplished by biliary sphincterotomy and balloon extraction. - Cholelithiasis was found. - A biliary sphincterotomy was performed. - The biliary tree was swept. Recommendation: - Monitor post procedure for complications of bleeding, fever or increa sed pain. - Check LFT's and lipase in AM - Remain NPO with gallstone pancreatitis on admission - Continue broad spectrum antibiotics - Perhaps surgery tomorrow - [facility] patient to [facility] for [facility] care. - Thank you for allowing me to be involved in the care of your patient. Attending Participation: I personally performed the entire procedure without the assistance of a fellow, resident or surg ical human resources benefits assistant. Kyler Ward MD Kyler Ward MD 11/18/2016 4:42:02 PM Number of Addenda: 0 Note Initiated On: 11/18/2016 3:29 PM [email or web address]
[2016-11-18] MEDS: ERTAPENEM 1 GM in NS 100 ML IV SCH (17:43)
[2016-11-18] MEDS: DOCUSATE SODIUM 100 MG CAP PO SCH (20:47)
[2016-11-18] MEDS: ONDANSETRON 4 MG/2 ML VIAL IVP PRN (21:40)
[2016-11-19] MEDS: INSULIN LISPRO 100 UNIT/ML SC SCH ×2 (01:14→06:42)
[2016-11-19] MEDS: NS 1,000 ML IV SCH ×3 (01:32→11:59)
[2016-11-19] MEDS: HYDROmorphONE/DILAUDID 1 MG/ML INJ IVP PRN ×4 (01:32→21:32)
[2016-11-19] MEDS: ONDANSETRON 4 MG/2 ML VIAL IVP PRN ×2 (04:42→10:30)
[2016-11-19 05:13] LABS: HEMATOCRIT 31.1 % (38.0-47.0); HEMOGLOBIN 10.4 g/dL (12.6-16.3); MEAN CELL HEMOGLOBIN 28.7 pg (27.9-34.1); MEAN CELL HEMOGLOBIN CONCENTR. 33.4 g/dL (32.4-36.7); MEAN CELL VOLUME 85.9 fL (81.5-99.8); RED BLOOD CELL COUNT 3.62 10^6/uL (4.18-5.33); RED CELL DISTRIBUTION WIDTH 13.3 % (11.5-15.2)
[2016-11-19 05:41] LABS: ALANINE AMINOTRANSFERASE 112 IU/L (9-52); ALKALINE PHOSPHATASE 52 IU/L (38-126); AMYLASE 175 IU/L (30-110); ASPARTATE AMINOTRANSFERASE 26 IU/L (14-46); BILIRUBIN,TOTAL 0.6 mg/dL (0.1-1.4); BILIRUBIN-CONJUGATED 0.4 mg/dL (0.0-0.5); BILIRUBIN-UNCONJUGATED 0.2 mg/dL (0.0-1.1); TOTAL PROTEIN 5.7 g/dL (6.3-8.2)
[2016-11-19] MEDS ORDERED: ERTAPENEM 1 GM in NS 100 ML IV SCH (09:00)
[2016-11-19] MEDS: ACETAMINOPHEN 650 MG SUPP PR PRN (09:01)
[2016-11-19] MEDS: ERTAPENEM 1 GM in NS 100 ML IV SCH (09:01)
[2016-11-19] MEDS: LEVOTHYROXINE 100 MCG/5 ML SYR IVP SCH (09:22)
[2016-11-19] MEDS: NORETHINDRONE E ESTRADIOL IRON PO SCH (10:23)
[2016-11-19] MEDS: LORazepam 2 MG/ML INJ IVP PRN (11:29)
--- NOTE | 2016-11-19 12:57 | HOSPPROG ---
Hospitalist Progress Note Assessment/Plan: 36-year-old with a history of hypertension and hypothyroidism is admitted with acute abdominal pain. Evaluation is consistent with gallstone pancreatitis. # pancreatitis likely secondary to gallstones. Pain improving this morning. * S/P ERCP with no worsening pain. * Lab elaine today * home tomorrow if eating well and pain controlled after surgery # fever in the setting of acute gallstone pancreatitis, will treat with Invanz I do not think she needs broad-spectrum antibiotics at this time, dc abx at dc if ok with Dr. Lacey. # history of hypertension on spironolactone. Since she is NPO Will hold the diuretic at this time and monitor her blood pressure can add p.r.n. IV medications as needed # hypothyroidism resume her levothyroxine. # 7.8 mm renal mass noted on MRI. Will have patient follow up with Urology as outpatient after her procedure here. They can decide on further imaging at that time. We will give her copy of her studies prior to discharge. # DVT prophylaxis currently on Lovenox. Subjective: feeling pretty good and pain is improving Objective: Vital Signs Temp Pulse Resp BP Pulse Ox 37.0 C 84 18 117/86 H 97 11/19/16 11:22 11/19/16 11:22 11/19/16 11:22 11/19/16 11:22 11/19/16 11:22 Laboratory Results 11/19/16 04:41 11/18/16 04:46 11/18/16 11/19/16 11/20/16 05:59 05:59 05:59 Intake Total 3579 2460 Output Total 1750 805 Balance 1829 1655 PT 12.7 SEC (12.0-15.0) 11/17/16 05:33 INR 0.96 (0.83-1.16) 11/17/16 05:33 - Physical Exam Constitutional: uncomfortable Cardiovascular: regular rate and rhythym Respiratory: no respiratory distress Gastrointestinal: tenderness ICD10 Worksheet Patient Problems: Problems Problem Status Onset Acute pancreatitis Acute
[2016-11-19] MEDS ORDERED: IOPAMIDOL (ISOVUE-M 300) 15 ML VIAL ONE (17:31)
[2016-11-19] MEDS ORDERED: HEPARIN 1000 UNIT/1 ML MDV ONE (17:32)
[2016-11-19] MEDS ORDERED: ceFAZolin 1 GM/5 ML SYR ONE (17:33)
[2016-11-19] MEDS ORDERED: BUPIVACAINE 0.5% 30 ML SDV ONE (17:33)
--- NOTE | 2016-11-19 17:33 | PDANEPAE ---
ANE History of Present Illness 36 yo for lap elaine s/p ercp hypothyroid ANE Past Medical History - Pulmonary History Hx Oxygen in Use at Home: No Hx Sleep Apnea: No Sleep Apnea Screening Result - Last Documented: Negative - Endocrine History Hx Diabetes: No Hypothyroid: Yes Endocrine History Comment: dyslipidemia - Chronic Pain History Chronic Pain: No ANE Review of Systems Review of Systems: - Exercise capacity METS (RN): 4 METS ANE Patient History - Allergies Allergies/Adverse Reactions: neomycin Allergy (Severe, Verified 11/17/16 09:18) nickel Allergy (Severe, Verified 11/17/16 09:18) - Home Medications Home Medications: Docusate Sodium [Colace 100 MG (*)] 100 mg PO HS 11/17/16 [Last Taken 11/15/16] Herbals/Supplements -Info Only 1 ea PO DAILY 11/17/16 [Last Taken Unknown] Levothyroxine [Synthroid 88 mcg (*)] 88 mcg PO DAILY06 11/17/16 [Last Taken 08/26] Norethindrone-E.estradiol-Iron [Blisovi Fe 1.5-30 Tablet] 1 tab PO DAILY [Last Taken 11/15/16] Spironolactone [Aldactone 25 MG (*)] 50 mg PO DAILY 11/17/16 [Last Taken ] - NPO status NPO Since - Liquids (Date): 11/16/16 NPO Since - Liquids (Time): 12:00 NPO Since - Solids (Date): 11/16/16 NPO Since - Solids (Time): 09:00 - Smoking Hx Smoking Status: Never smoked - Alcohol Use Alcohol Use: Occasionally ANE Labs/Vital Signs - Labs Result Diagrams: 11/19/16 04:41 11/18/16 04:46 - Vital Signs Blood Pressure: 117/86 Heart Rate: 84 Respiratory Rate: 18 O2 Sat (%): 97 Height: 5 ft 2 in Weight: 69.9 kg ANE Physical Exam - Airway Mallampati Score: Class 2 Mouth exam: normal dental/mouth exam - Pulmonary Pulmonary: no respiratory distress - Cardiovascular Cardiovascular: regular rate and rhythym - ASA Status ASA Status: II ANE Anesthesia Plan Anesthesia Plan: general endotracheal anesthesia
[2016-11-19] MEDS ORDERED: MIDAZOLAM 2 MG/2 ML VIAL IVP ONE (17:35)
[2016-11-19] MEDS ORDERED: CEFAZOLIN 1 GM/DEXTROSE/50 ML BAG IV ONE (17:37)
[2016-11-19] MEDS ORDERED: fentaNYL 100 MCG/2 ML INJ ONE ×4 (17:58→19:57)
[2016-11-19] MEDS ORDERED: PROPOFOL/EMULSION 500 MG/50 ML BOTTLE IV ONE (17:59)
[2016-11-19] MEDS ORDERED: ROCURONIUM 50 MG/5 ML VIAL ONE (18:00)
[2016-11-19] MEDS ORDERED: DEXAMETHASONE 4 MG/ML VIAL ONE (18:00)
--- NOTE | 2016-11-19 18:31 | POSTOPPROG ---
Post Op Note Date of Operation: 11/19/16 Surgeon: Francia Paredes Sleep Manager: Francia Paredes Anesthesiologist: Vicente Dumont Anesthesia: GET(General Endotracheal) Pre-op Diagnosis: gallstone pancreatitis, choledocholithiasis, cholelithiasis Post-op Diagnosis: same Procedure: lap elaine c IOC Findings: stones, dilated cystic duct, +filling defect on IOC, unchanged with flush Inf/Abcess present in the surg proc area at time of surgery?: No EBL: Minimal Complications: none Specimen(s): gallbladder to pathology
[2016-11-19] MEDS ORDERED: SUGAMMADEX SODIUM 200 MG/2 ML VIAL IVP ONE (19:10)
[2016-11-19] MEDS ORDERED: ONDANSETRON 4 MG/2 ML VIAL IVP PRN (19:11)
[2016-11-19] MEDS ORDERED: NALOXONE HCL 0.4 MG/ML INJ IVP PRN (19:11)
[2016-11-19] MEDS ORDERED: PROMETHAZINE HCL 25 MG/ML INJ IVP PRN (19:11)
[2016-11-19] MEDS ORDERED: HYDROmorphONE/DILAUDID 1 MG/ML INJ IVP PRN (19:11)
[2016-11-19] MEDS: fentaNYL 100 MCG/2 ML INJ IVP PRN ×2 (19:38→19:51)
[2016-11-19] MEDS ORDERED: ONDANSETRON 4 MG/2 ML VIAL ONE (19:40)
[2016-11-19] MEDS ORDERED: PROMETHAZINE HCL 25 MG/ML INJ ONE (19:57)
[2016-11-19] MEDS ORDERED: HYDROmorphONE/DILAUDID 1 MG/ML INJ ONE (19:58)
[2016-11-19] MEDS: PROMETHAZINE HCL 25 MG/ML INJ IVP PRN (21:36)
[2016-11-19] MEDS: DOCUSATE SODIUM 100 MG CAP PO SCH (21:46)
[2016-11-20] MEDS: HYDROmorphONE/DILAUDID 1 MG/ML INJ IVP PRN ×6 (01:06→20:34)
[2016-11-20] MEDS: LORazepam 2 MG/ML INJ IVP PRN (01:06)
[2016-11-20] MEDS: NS 1,000 ML IV SCH ×4 (01:08→20:36)
[2016-11-20 05:39] LABS: ALANINE AMINOTRANSFERASE 88 IU/L (9-52); ALBUMIN 2.6 g/dL (3.5-5.0); ALKALINE PHOSPHATASE 48 IU/L (38-126); AMYLASE 156 IU/L (30-110); ASPARTATE AMINOTRANSFERASE 35 IU/L (14-46); BILIRUBIN,TOTAL 0.4 mg/dL (0.1-1.4); BILIRUBIN-CONJUGATED 0.3 mg/dL (0.0-0.5); BILIRUBIN-UNCONJUGATED 0.1 mg/dL (0.0-1.1); TOTAL PROTEIN 5.3 g/dL (6.3-8.2)
[2016-11-20] MEDS: ACETAMINOPHEN 650 MG SUPP PR PRN ×2 (05:53→16:21)
[2016-11-20] MEDS: NORETHINDRONE E ESTRADIOL IRON PO SCH (08:44)
[2016-11-20] MEDS: LEVOTHYROXINE 100 MCG/5 ML SYR IVP SCH (08:48)
[2016-11-20] MEDS: ERTAPENEM 1 GM in NS 100 ML IV SCH (08:49)
--- NOTE | 2016-11-20 09:04 | SOAPPROG ---
SOAP Progress Note Assessment/Plan: Assessment: 36yo F POD #1 s/p lap elaine with grams for gallstone pancreatitis, choledocholithiasis, cholelithiasis. Stones present in CBD that were not able to be flushed out during surgery. Will need to check with GI about another ERCP. NPO until decision about ERCP. Cont pain control S: pt c/o pain below her right breast improved with medication and ice pack. Denies N/V/D/C. O: Afebrile Lying in bed, NAD MMM No increased WOB Abd soft, nondistended, lap incisions c/d/i with steris in place. +BS Objective: Vital Signs Temp Pulse Resp BP Pulse Ox 37.0 C 69 16 100/76 95 11/20/16 07:35 11/20/16 07:35 11/20/16 07:35 11/20/16 07:35 11/20/16 07:35 Laboratory Results 11/19/16 04:41 11/18/16 04:46 11/19/16 11/20/16 11/21/16 05:59 05:59 05:59 Intake Total 2460 950 Output Total 805 1300 Balance 1655 -350 PT 12.7 SEC (12.0-15.0) 11/17/16 05:33 INR 0.96 (0.83-1.16) 11/17/16 05:33 ICD10 Worksheet Patient Problems: Problems Problem Status Onset Acute pancreatitis Acute
--- NOTE | 2016-11-20 12:38 | HOSPPROG ---
Hospitalist Progress Note Assessment/Plan: New patient encounter. 36-year-old with a history of hypertension and hypothyroidism is admitted with acute abdominal pain. Evaluation is consistent with gallstone pancreatitis. Now on POD #1 s/p Lap Ruma. Pain well controlled. NPO as stones in CBC were not obtained during surgery. Surgery is coordinating with GI a repeat ERCP. # Gallstone Pancreatitis # POD #1 due to Gallstone pancreatitis, choledocholithiasis, cholelithiasis -NPO -Pain Mgmt -IVF # fever in the setting of acute gallstone pancreatitis -Cont with Invanz for now. Leukocytosis noted. Will follow clinically. Repeat labs in a.m. # history of hypertension on spironolactone. Since she is NPO cont to hold the diuretic at this time and monitor her blood pressure can add p.r.n. IV medications as needed # hypothyroidism resume her levothyroxine. # 7.8 mm renal mass noted on MRI. Will have patient follow up with Urology as outpatient after her procedure here. They can decide on further imaging at that time. We will give her copy of her studies prior to discharge. # DVT prophylaxis currently on Lovenox. Subjective: NPO. Possible ERCP today or tomorrow. Pain is well controlled. Getting IVF Objective: Vital Signs Temp Pulse Resp BP Pulse Ox 37.1 C 88 18 108/79 95 11/20/16 11:03 11/20/16 11:03 11/20/16 11:03 11/20/16 11:03 11/20/16 11:03 Laboratory Results 11/19/16 04:41 11/18/16 04:46 11/19/16 11/20/16 11/21/16 05:59 05:59 05:59 Intake Total 2460 950 Output Total 805 1300 Balance 1655 -350 PT 12.7 SEC (12.0-15.0) 11/17/16 05:33 INR 0.96 (0.83-1.16) 11/17/16 05:33 - Physical Exam Constitutional: no apparent distress Eyes: PERRL, EOMI Ears, Nose, Mouth, Throat: moist mucous membranes, hearing normal Cardiovascular: regular rate and rhythym, No irregularly irregular Respiratory: no respiratory distress, no rales or rhonchi, clear to auscultation Gastrointestinal: other (appropriately tender. Non distended) Skin: warm Neurologic: AAOx3, sensation intact bilaterally Psychiatric: interacting appropriately, not anxious, not encephalopathic ICD10 Worksheet Patient Problems: Problems Problem Status Onset Acute pancreatitis Acute
--- NOTE | 2016-11-20 13:38 | SOAPPROG ---
[facility] Progress Note Assessment/Plan: Assessment: 1. Choledocholithasis s/p ERC with spincterotomy and stone extraction 2. Lap elaine with positive IOC for possibly 3 smaller filling defects 3. Abdominal pain 4. Elevated LFTs 5. Gallstone pancreatitis. Plan: 1. With her generous sphincterotomy the residual stones may pass spontaneously 2. Currently her pancreatitis is improving as are her LFTs and pain 3. Clears today 4. Monitor LFTs and lipase 5. If worsening pain or failure of LFTs to normalize then will repeat ERC 6. If she does well clinically then would advance diet and plan for outpatient MRCP and labs to assess the possibility of spontaneous stone clearance. 7. If the repeat imaging documents retained stones then will repeat ERC at that time. 8. Continue antibiotics for now I would have a lower threshold to engage in another ERC given the IOC findings but this may resolve without further intervention. Patient and surgery aware. 11/20/16 13:43 Subjective: CC: abdominal pain much improved. She reports only hurts her upper abdomen when she takes a deep breath and first sits up. Ambulating in halls well without pain. No fever. Objective: Vital Signs Temp Pulse Resp BP Pulse Ox 37.1 C 88 18 108/79 95 11/20/16 11:03 11/20/16 11:03 11/20/16 11:03 11/20/16 11:03 11/20/16 11:03 Laboratory Results 11/19/16 04:41 11/18/16 04:46 11/19/16 11/20/16 11/21/16 05:59 05:59 05:59 Intake Total 2460 950 Output Total 805 1300 Balance 1655 -350 PT 12.7 SEC (12.0-15.0) 11/17/16 05:33 INR 0.96 (0.83-1.16) 11/17/16 05:33 Physical Exam - Physical Exam General Appearance: WD/WN, no apparent distress EENT: normal ENT inspection, No scleral icterus (R), No scleral icterus (L) Neck: supple, normal inspection Respiratory: normal breath sounds Cardiac/Chest: regular rate, rhythm, No systolic murmur Abdomen: non-tender, soft, other (Lap elaine port sites look C/D/I.) Skin: warm/dry, No jaundice Lymphatic: no adenopathy Neuro/Psych: alert, normal mood/affect, oriented x 3 ICD10 Worksheet Patient Problems: Problems Problem Status Onset Acute pancreatitis Acute
[2016-11-20] MEDS: ONDANSETRON 4 MG/2 ML VIAL IVP PRN ×2 (16:21→20:39)
[2016-11-20] MEDS: DOCUSATE SODIUM 100 MG CAP PO SCH (20:19)
[2016-11-20] MEDS: PROMETHAZINE HCL 25 MG/ML INJ IVP PRN (22:40)
[2016-11-21] MEDS: HYDROmorphONE/DILAUDID 1 MG/ML INJ IVP PRN ×2 (00:36→05:13)
[2016-11-21] MEDS: ONDANSETRON 4 MG/2 ML VIAL IVP PRN ×2 (00:36→04:45)
[2016-11-21] MEDS: LORazepam 2 MG/ML INJ IVP PRN (02:42)
[2016-11-21] MEDS: NS 1,000 ML IV SCH ×2 (02:44→20:39)
[2016-11-21 05:52] LABS: ALBUMIN 2.8 g/dL (3.5-5.0); BILIRUBIN,TOTAL 0.4 mg/dL (0.1-1.4); BILIRUBIN-CONJUGATED 0.3 mg/dL (0.0-0.5); BILIRUBIN-UNCONJUGATED 0.1 mg/dL (0.0-1.1); TOTAL PROTEIN 5.4 g/dL (6.3-8.2)
[2016-11-21 08:30] LABS: % IMMATURE GRANULYOCYTES 0.5 % (0.0-1.1); ABSOLUTE IMMATURE GRANULOCYTES 0.07 10^3/uL (0.00-0.10); ADD DIFF? NO; ADD MORPH? NO; ADD SCAN? NO; ATYPICAL LYMPHOCYTE FLAG 0 (0-99); FRAGMENT RBC FLAG 0 (0-99); HEMATOCRIT 31.3 % (38.0-47.0); HEMOGLOBIN 10.4 g/dL (12.6-16.3); LEFT SHIFT FLG 0 (0-99); LIPEMIA HEMOLYSIS FLAG 80 (0-99); MEAN CELL HEMOGLOBIN 28.5 pg (27.9-34.1); MEAN CELL HEMOGLOBIN CONCENTR. 33.2 g/dL (32.4-36.7); MEAN CELL VOLUME 85.8 fL (81.5-99.8); PLATELET CLUMPS FLAG 0 (0-99); PLATELET COUNT 343 10^3/uL (150-400); RED BLOOD CELL COUNT 3.65 10^6/uL (4.18-5.33)
[2016-11-21] MEDS ORDERED: GLUCAGON,HUMAN RECOMBINANT 1 MG VIAL ONE (08:48)
[2016-11-21] MEDS ORDERED: IOTHALAMATE MEG (CONRAY) 50 ML VIAL IV ONE (08:48)
[2016-11-21] MEDS: ERTAPENEM 1 GM in NS 100 ML IV SCH (09:10)
--- NOTE | 2016-11-21 09:25 | PDANEPAE ---
ANE History of Present Illness 36 yo for ERCP,s/p colecystectomy ANE Past Medical History - Pulmonary History Hx Oxygen in Use at Home: No Hx Sleep Apnea: No Sleep Apnea Screening Result - Last Documented: Negative - Endocrine History Hx Diabetes: No Hypothyroid: Yes Endocrine History Comment: dyslipidemia - Chronic Pain History Chronic Pain: No ANE Review of Systems Review of systems is: negative Review of Systems: - Exercise capacity METS (RN): 4 METS ANE Patient History - Allergies Allergies/Adverse Reactions: neomycin Allergy (Severe, Verified 11/17/16 09:18) nickel Allergy (Severe, Verified 11/17/16 09:18) - Home Medications Home Medications: Docusate Sodium [Colace 100 MG (*)] 100 mg PO HS 11/17/16 [Last Taken 11/15/16] Herbals/Supplements -Info Only 1 ea PO DAILY 11/17/16 [Last Taken Unknown] Levothyroxine [Synthroid 88 mcg (*)] 88 mcg PO DAILY06 11/17/16 [Last Taken 08/26] Norethindrone-E.estradiol-Iron [Blisovi Fe 1.5-30 Tablet] 1 tab PO DAILY [Last Taken 11/15/16] Spironolactone [Aldactone 25 MG (*)] 50 mg PO DAILY 11/17/16 [Last Taken ] - NPO status NPO Since - Liquids (Date): 11/20/16 NPO Since - Liquids (Time): 20:00 NPO Since - Solids (Date): 11/18/16 NPO Since - Solids (Time): 09:00 - Smoking Hx Smoking Status: Never smoked - Alcohol Use Alcohol Use: Rarely ANE Labs/Vital Signs - Labs Result Diagrams: 11/21/16 05:12 11/18/16 04:46 - Vital Signs Blood Pressure: 132/80 Heart Rate: 102 Respiratory Rate: 16 O2 Sat (%): 97 Height: 157.48 cm Weight: 73.737 kg ANE Physical Exam - Airway Neck exam: FROM Mallampati Score: Class 1 Mouth exam: normal dental/mouth exam - Pulmonary Pulmonary: no respiratory distress - Cardiovascular Cardiovascular: regular rate and rhythym - ASA Status ASA Status: II ANE Anesthesia Plan Anesthesia Plan: general endotracheal anesthesia
[2016-11-21] MEDS ORDERED: PROPOFOL 200 MG/20 ML VIAL ONE (10:30)
[2016-11-21] MEDS ORDERED: fentaNYL 100 MCG/2 ML INJ ONE (10:30)
[2016-11-21] MEDS ORDERED: INDOMETHACIN 50 MG SUPP PR ONE ×2 (10:42→10:44)
--- NOTE | 2016-11-21 11:19 | GIREPORT ---
Formerly [facility] Surgical Services - Endoscopy Department Patient Name: Jazmin Stewart Procedure Date: 11/21/2016 10:25 AM Patient Type: Inpatient Attending MD/ ER Physician: Kyler Ward MD Procedure: ERCP Indications: Filling defect on intraoperative cholangiogram, Bile duct stone(s) Providers: Kyler Ward MD Medicines: General Anesthesia, Indomethacin 100 mg TN, Invanz 1 g IV Complications: No immediate complications. Description of Procedure: After obtaining informed consent, the scope was passed under direct vision. Throughout the proce dure, the patient's blood pressure, pulse, and oxygen saturations were monitored continuously. The Duodenalscope was introduced through the mouth, and advanced to the duodenum and used to inject contrast into the bile duct. The ERCP was accomplished without difficulty. The patient tolerated the procedure well. Findings: A book canvasser film of the abdomen was obtained. Surgical clips, consistent with a previous cholecystec arely, were seen in the area of the right upper quadrant of the abdomen. The scope was advanced to a no rmal major papilla in the descending duodenum. Examination of the pharynx, larynx and associated structures, and upper GI tract was normal. A biliary sphincteroplasty had been performed. The sphincteroplasty appeared open. The bile duct was deeply cannulated with the short-nosed tractio n sphincterotome. Contrast was injected. I personally interpreted the bile duct images. There was brisk flow of contrast through the ducts. Image quality was excellent. Contrast extended to the entire biliary tree. The lower third of the main duct contained filling defect(s) thought to be a stone . The middle third of the main bile duct and upper third of the main bile duct were moderately dilated and diffusely dilated, with a stone causing an obstruction. The largest diameter was 12 mm. A 0.035 inch straight standard wire was passed into the biliary tree. The biliary tree was swept with a 12 mm balloon starting at the bifurcation. One stone was removed. No stones remained. Sludge was swept from the duct. Estimated Blood Loss: Estimated blood loss: none. Post Op Diagnosis: - The prior biliary sphincteroplasty appeared open. - A filling defect consistent with a stone was seen on the cholangiogra m. - The upper third of the main bile duct and middle third of the main bi le duct were moderately dilated, with a stone causing an obstruction. - Choledocholithiasis was found. Complete removal was accomplished by balloon extraction. - The biliary tree was swept and sludge was found. Recommendation: - Clear liquid diet today. - Avoid aspirin and nonsteroidal anti-inflammatory medicines. - Continue antibiotics today. - Check AM LFTs, CBC and Lipase please. - Return patient to [facility] for ongoing care. - Thank you for allowing me to be involved in the care of your patient. Attending Participation: I personally performed the entire procedure without the assistance of a fellow, resident or surg ical assistant cross country coach. Kyler Ward MD Kyler Ward MD 11/21/2016 11:19:09 AM Number of Addenda: 0 Note Initiated On: 11/21/2016 10:25 AM [email or web address]
[2016-11-21] MEDS ORDERED: NALOXONE HCL 0.4 MG/ML INJ IVP PRN (11:26)
[2016-11-21] MEDS ORDERED: PROMETHAZINE HCL 25 MG/ML INJ IVP PRN (11:26)
[2016-11-21] MEDS ORDERED: fentaNYL 100 MCG/2 ML INJ IVP PRN (11:26)
[2016-11-21] MEDS ORDERED: ONDANSETRON 4 MG/2 ML VIAL IVP PRN (11:26)
--- NOTE | 2016-11-21 11:28 | POSTANESTH ---
Post Anesthetic Evaluation Cardiovascular Status: Normal, Stable Respiratory Status: Normal, Stable Level of Consciousness/Mental Status: Can Participate in Eval, Mildly Sleepy, Arousable Pain Control: Adequate, Prn Tx Ordered Nausea/Vomiting Control: Adequate, Prn Tx Ordered Complications Possibly Related to Anesthesia: None Noted
[2016-11-21] MEDS: NORETHINDRONE E ESTRADIOL IRON PO SCH (12:32)
[2016-11-21] MEDS: LEVOTHYROXINE 100 MCG/5 ML SYR IVP SCH (12:32)
--- NOTE | 2016-11-21 13:50 | HOSPPROG ---
Hospitalist Progress Note Assessment/Plan: 36-year-old with a history of hypertension and hypothyroidism is admitted with acute abdominal pain. Evaluation is consistent with gallstone pancreatitis. Now on POD #2 s/p Lap Ruma. She had repeat ERCP today with stone extraction. Plans is to monitor overnight. Cont CLD. Labs in a.m. # Gallstone Pancreatitis # POD #2 due to Gallstone pancreatitis, choledocholithiasis, cholelithiasis -CLD -Pain Mgmt # fever in the setting of acute gallstone pancreatitis -Cont with Invanz # history of hypertension on spironolactone. Since she is NPO cont to hold the diuretic at this time and monitor her blood pressure can add p.r.n. IV medications as needed # hypothyroidism resume her levothyroxine. # 7.8 mm renal mass noted on MRI. Will have patient follow up with Urology as outpatient after her procedure here. They can decide on further imaging at that time. We will give her copy of her studies prior to discharge. # DVT prophylaxis currently on Lovenox. Subjective: Had ERCP today. Still with mild Abd pain. No N/V. On a CLD Objective: Vital Signs Temp Pulse Resp BP Pulse Ox 37.2 C 75 16 108/70 100 11/21/16 13:09 11/21/16 13:09 11/21/16 13:09 11/21/16 13:09 11/21/16 13:09 Laboratory Results 11/21/16 05:12 11/18/16 04:46 11/20/16 11/21/16 11/22/16 05:59 05:59 05:59 Intake Total 950 410 Output Total 1300 1500 500 Balance -350 -1500 -90 PT 12.7 SEC (12.0-15.0) 11/17/16 05:33 INR 0.96 (0.83-1.16) 11/17/16 05:33 - Physical Exam Constitutional: no apparent distress, appears nourished, not in pain Eyes: PERRL Ears, Nose, Mouth, Throat: moist mucous membranes, hearing normal Cardiovascular: regular rate and rhythym, No irregularly irregular, No edema Respiratory: no respiratory distress, no rales or rhonchi, clear to auscultation Gastrointestinal: normoactive bowel sounds, tenderness (mild generalized), distension (slight) Skin: warm Neurologic: AAOx3 Psychiatric: interacting appropriately, not anxious, not encephalopathic, thought process linear ICD10 Worksheet Patient Problems: Problems Problem Status Onset Acute pancreatitis Acute
--- NOTE | 2016-11-21 16:16 | ASMTCMCOM ---
CM Note CM Note Notes: Spoke w/RN, anticipate will dc home independent when medically stable. CM available for any changes. Date Signed: 11/21/2016 04:15 PM Electronically Signed By:Moni Murphy RN
--- NOTE | 2016-11-21 16:37 | GOP ---
[f rep st] OPERATIVE REPORT DATE OF OPERATION: 11/19/2016 SURGEON: Helio Lacey MD PATIENT ATTENDANT: ANDRES Zazueta ANESTHESIOLOGIST: Dominguez Dumont MD. PREOPERATIVE DIAGNOSIS: Gallstone pancreatitis and cholelithiasis. POSTOPERATIVE DIAGNOSIS: Gallstone pancreatitis and cholelithiasis plus choledocholithiasis. PROCEDURE PERFORMED: Laparoscopic cholecystectomy with intraoperative cholangiogram. FINDINGS: Patient with multiple large stones in the gallbladder with a very dilated cystic duct, dil ated common duct with multiple filling defects distally which were unable to be flushed out. ESTIMATED BLOOD LOSS: Negligible. DESCRIPTION OF PROCEDURE: Patient taken to the operating room where she received satisfactory genera l endotracheal anesthesia by Dr. Dumont. She was placed in supine position, prepped and draped in the usual sterile fashion. A periumbilical incision was made. A Veress needle inserted. Pneumoperi toneum was established. Trocar was introduced. Laparoscope introduced. Good visualization was obta ined. Three other trocars were placed in the upper abdomen under direct vision. The gallbladder was elevated up. Adhesions were taken down. The cystic triangle was carefully dissected free. The cys tic duct was quite large, it was encircled. The cystic artery was isolated. It was multi-hemoclippe d and divided. The peritoneum of the gallbladder was incised. The gallbladder was dissected free fr om the bed and hepatic fossa. A cholangiogram catheter was brought in through a separate stab incisi on and then passed into the cystic duct through a small incision. It was anchored in place with hemo clips. Cholangiography was then performed with the C-arm showing markedly dilated intrahepatic and c ommon hepatic and common duct with several filling defects in the distal end of the common duct. I d id get into the duodenum, but it was a very small flow. Attempt to flush the stones through did not succeed. Cystic duct was then ligated with 2-0 PDS Endoloops and then divided. The gallbladder was extracted through the upper midline port site. The wound was copiously irrigated. Hemostasis was as sured. Trocars were removed under direct vision. Trocar sites were closed with 0 Vicryl for the fas kim, 4-0 Monocryl subcuticular stitch for the skin. All layers infiltrated with 0.5% Marcaine. COMPLICATIONS: None. /[id number]/JALEELL
[2016-11-21] MEDS: DOCUSATE SODIUM 100 MG CAP PO SCH (20:35)
[2016-11-21] MEDS: ACETAMINOPHEN 650 MG SUPP PR PRN (20:39)
[2016-11-22] MEDS: NS 1,000 ML IV SCH ×2 (03:28→10:33)
[2016-11-22] MEDS: ACETAMINOPHEN 650 MG SUPP PR PRN ×2 (03:28→15:34)
[2016-11-22] MEDS: LORazepam 2 MG/ML INJ IVP PRN ×3 (03:34→23:29)
[2016-11-22 05:23] LABS: HEMATOCRIT 26.6 % (38.0-47.0); MEAN CELL HEMOGLOBIN 28.5 pg (27.9-34.1); MEAN CELL HEMOGLOBIN CONCENTR. 33.8 g/dL (32.4-36.7); MEAN CELL VOLUME 84.2 fL (81.5-99.8); RED BLOOD CELL COUNT 3.16 10^6/uL (4.18-5.33); RED CELL DISTRIBUTION WIDTH 13.5 % (11.5-15.2)
[2016-11-22 05:36] LABS: ALBUMIN 2.5 g/dL (3.5-5.0); BILIRUBIN,TOTAL 0.5 mg/dL (0.1-1.4); BILIRUBIN-CONJUGATED 0.4 mg/dL (0.0-0.5); BILIRUBIN-UNCONJUGATED 0.1 mg/dL (0.0-1.1)
[2016-11-22] MEDS: ERTAPENEM 1 GM in NS 100 ML IV SCH (08:27)
[2016-11-22] MEDS: NORETHINDRONE E ESTRADIOL IRON PO SCH (08:32)
--- NOTE | 2016-11-22 11:05 | HOSPPROG ---
Hospitalist Progress Note Assessment/Plan: 36-year-old with a history of hypertension and hypothyroidism is admitted with acute abdominal pain. Evaluation is consistent with gallstone pancreatitis. Now on POD #3 s/p Lap Ruma. She had repeat ERCP 11/21 with stone extraction. Overnight she has tolerated CLD and diet has been advanced to regular today by GI. She still has mid epigastric discomfort. Plan today is to determine how she does with the advancement of her diet. Pending course, will discharge today vs tomorrow. Fever was reported by nursing on the wrong patient yesterday. She has not had a fever # Gallstone Pancreatitis # POD #3 due to Gallstone pancreatitis, choledocholithiasis, cholelithiasis -CLD -Pain Mgmt # fever in the setting of acute gallstone pancreatitis -Cont with Invanz # history of hypertension on spironolactone. Since she is NPO cont to hold the diuretic at this time and monitor her blood pressure can add p.r.n. IV medications as needed. # hypothyroidism resume her levothyroxine. # 7.8 mm renal mass noted on MRI. Will have patient follow up with Urology as outpatient after her procedure here. They can decide on further imaging at that time. We will give her copy of her studies prior to discharge. # DVT prophylaxis currently on Lovenox. Subjective: still with abd discomfort. No N/V Objective: Vital Signs Temp Pulse Resp BP Pulse Ox 36.9 C 78 16 114/80 90 L 11/22/16 07:13 11/22/16 07:13 11/22/16 07:13 11/22/16 07:13 11/22/16 07:13 Laboratory Results 11/22/16 04:57 11/18/16 04:46 11/21/16 11/22/16 11/23/16 05:59 05:59 05:59 Intake Total 810 2568 Output Total 1500 2900 Balance -1500 -2090 2568 PT 12.7 SEC (12.0-15.0) 11/17/16 05:33 INR 0.96 (0.83-1.16) 11/17/16 05:33 - Physical Exam Constitutional: no apparent distress, appears nourished, not in pain Eyes: PERRL, anicteric sclera, EOMI Ears, Nose, Mouth, Throat: moist mucous membranes, hearing normal Cardiovascular: regular rate and rhythym, No edema Respiratory: no respiratory distress, no rales or rhonchi, clear to auscultation Gastrointestinal: tenderness (mid epigastric), No distension Skin: warm Neurologic: AAOx3 Psychiatric: interacting appropriately, not anxious, not encephalopathic ICD10 Worksheet Patient Problems: Problems Problem Status Onset Acute pancreatitis Acute
[2016-11-22] MEDS: LEVOTHYROXINE 100 MCG/5 ML SYR IVP SCH (12:05)
--- NOTE | 2016-11-22 13:01 | SOAPPROG ---
SOAP Progress Note Assessment/Plan: Assessment: 36yo F POD #3 s/p lap elaine with grams for gallstone pancreatitis, choledocholithiasis, cholelithiasis. ERCP yesterday for removal of remaining CBD stone. Afebrile with leukocytosis downtrending. Adv diet to low fat regular Continue pain control S: No complaints. Pain controlled. Passing gas. Denies N/V/D/C. O: Afebrile Lying in bed, NAD MMM No increased WOB Abd soft, nondistended, lap incisions c/d/i with steris in place. +BS 11/22/16 12:59 Objective: Vital Signs Temp Pulse Resp BP Pulse Ox 36.9 C 78 16 114/80 90 L 11/22/16 07:13 11/22/16 07:13 11/22/16 07:13 11/22/16 07:13 11/22/16 07:13 Laboratory Results 11/22/16 04:57 11/18/16 04:46 11/21/16 11/22/16 11/23/16 05:59 05:59 05:59 Intake Total 810 2568 Output Total 1500 2900 Balance -1500 -2090 2568 PT 12.7 SEC (12.0-15.0) 11/17/16 05:33 INR 0.96 (0.83-1.16) 11/17/16 05:33 ICD10 Worksheet Patient Problems: Problems Problem Status Onset Acute pancreatitis Acute
--- NOTE | 2016-11-22 16:05 | SOAPPROG ---
KULW[facility] Progress Note Assessment/Plan: Assessment: Plan: 11/22/16 16:02 A/P 1. Choledocholithiasis- s/p ERCP yesterday with clearance of duct. No apparent complications of procedure. Dr. Olvera is taking over the service at 5pm. Please call him if needed. GI will sign off. Subjective: cc: Follow up of choledocholithiasis. Feeling better. Objective: Vital Signs Temp Pulse Resp BP Pulse Ox 37.2 C 81 20 132/93 H 96 11/22/16 15:27 11/22/16 15:27 11/22/16 15:27 11/22/16 15:27 11/22/16 15:27 Laboratory Results 11/22/16 04:57 11/18/16 04:46 11/21/16 11/22/16 11/23/16 05:59 05:59 05:59 Intake Total 810 2568 Output Total 1500 2900 Balance -1500 -2090 2568 PT 12.7 SEC (12.0-15.0) 11/17/16 05:33 INR 0.96 (0.83-1.16) 11/17/16 05:33 Physical Exam - Physical Exam General Appearance: alert, no apparent distress EENT: No scleral icterus (R), No scleral icterus (L) Respiratory: lungs clear, normal breath sounds, No crackles, No rales, No rhonchi Cardiac/Chest: regular rate, rhythm, No bradycardia, No tachycardia, No diastolic murmur, No systolic murmur Abdomen: soft, No non-tender (minimal), No distended, No guarding, No rebound, No hepatomegaly, No splenomegaly Skin: normal color, warm/dry Neuro/Psych: normal mood/affect, oriented x 3 ICD10 Worksheet Patient Problems: Problems Problem Status Onset Acute pancreatitis Acute
[2016-11-22] MEDS: DOCUSATE SODIUM 100 MG CAP PO SCH (20:06)
[2016-11-22] MEDS: HYDROCODONE/APAP 5/325 TAB PO PRN (21:03)
[2016-11-23] MEDS: HYDROCODONE/APAP 5/325 TAB PO PRN (02:49)
[2016-11-23 06:12] LABS: % IMMATURE GRANULYOCYTES 1.1 % (0.0-1.1); ABSOLUTE IMMATURE GRANULOCYTES 0.14 10^3/uL (0.00-0.10); ADD DIFF? NO; ADD MORPH? NO; ADD SCAN? NO; ATYPICAL LYMPHOCYTE FLAG 10 (0-99); FRAGMENT RBC FLAG 0 (0-99); HEMATOCRIT 27.8 % (38.0-47.0); HEMOGLOBIN 9.6 g/dL (12.6-16.3); LEFT SHIFT FLG 10 (0-99); LIPEMIA HEMOLYSIS FLAG 90 (0-99); MEAN CELL HEMOGLOBIN CONCENTR. 34.5 g/dL (32.4-36.7); MEAN PLATELET VOLUME 9.4 fL (8.7-11.7); PLATELET CLUMPS FLAG 0 (0-99); PLATELET COUNT 402 10^3/uL (150-400); RED BLOOD CELL COUNT 3.31 10^6/uL (4.18-5.33); RED CELL DISTRIBUTION WIDTH 13.7 % (11.5-15.2)
[2016-11-23 06:16] LABS: ANION GAP 12 mEq/L (8-16); CALCIUM 8.5 mg/dL (8.5-10.4); CARBON DIOXIDE 23 mEq/l (22-31); CHLORIDE 103 mEq/L (97-110); CREATININE 0.5 mg/dL (0.6-1.0); GLOMERULAR FILTRATION RATE > 60; GLUCOSE 79 mg/dL (70-100); POTASSIUM 3.4 mEq/L (3.5-5.2); SODIUM 138 mEq/L (134-144)
[2016-11-23] MEDS: ACETAMINOPHEN 650 MG SUPP PR PRN (08:23)
[2016-11-23] MEDS: ERTAPENEM 1 GM in NS 100 ML IV SCH (08:24)
--- NOTE | 2016-11-23 08:59 | SOAPPROG ---
KULW[facility] Progress Note Assessment/Plan: Assessment: s/p lap elaine and liver bx Improved today Clears - adat D/C when medically appropriate S: Feels better but still "punk" Incisions cdi, soft with minimal tenderness. BS present Plan: 11/23/16 08:58 Objective: Vital Signs Temp Pulse Resp BP Pulse Ox 37.4 C 78 16 117/85 H 90 L 11/23/16 08:00 11/23/16 08:00 11/23/16 08:00 11/23/16 08:00 11/23/16 08:00 Microbiology 11/17/16 23:20 Blood Culture - Final Blood 11/17/16 23:15 Blood Culture - Final Blood Laboratory Results 11/23/16 04:57 11/23/16 04:57 11/22/16 11/23/16 11/24/16 05:59 05:59 05:59 Intake Total 810 2568 Output Total 2900 900 700 Balance -2090 1668 -700 PT 12.7 SEC (12.0-15.0) 11/17/16 05:33 INR 0.96 (0.83-1.16) 11/17/16 05:33 ICD10 Worksheet Patient Problems: Problems Problem Status Onset Acute pancreatitis Acute
[2016-11-23] MEDS: NORETHINDRONE E ESTRADIOL IRON PO SCH (09:05)
--- NOTE | 2016-11-23 10:41 | PDDCSUM ---
Discharge Summary Discharge Summary: 36-year-old with a history of hypertension and hypothyroidism admitted with acute abdominal pain. Evaluation was consistent with gallstone pancreatitis. On discharge, she is on POD #4 s/p Lap Elanie. She had repeat ERCP 11/21 with stone extraction as the stone was not able to be obtained during lap elaine. Diet has been advance and she is tolerating a regular diet w/o difficulty. Hydration status is improved. From an ID perspective, she was started on Invanz. Leukocytosis is improving but still present. At discharge, she will start Augmentin 875mg BID x 5 additional day. She will f/u with Surgery per their recommendations as well as with her PCP in 1 -2 weeks. Pain meds ([place]) provided. Spironolactone was stopped. Restarting this can be discussed in her f/u with her PCP. Discharge Diagnosis: # Gallstone Pancreatitis # POD #4 due to Gallstone pancreatitis, choledocholithiasis, cholelithiasis # fever in the setting of acute gallstone pancreatitis # history of hypertension on spironolactone. Since she is NPO cont to hold the diuretic at this time and monitor her blood pressure can add p.r.n. IV medications as needed. # hypothyroidism resume her levothyroxine. # 7.8 mm renal mass noted on MRI. Will have patient follow up with Urology as outpatient after her procedure here. Exam: NAD AAOX3 RRR CTAB S/NT/ND NO EDEMA MEDS: SEE MED REC. NEW MEDS PER ABOVE TOTAL TIME SPENT ON DISCHARGE IS 40 MINUTES
[2016-11-23] MEDS: LEVOTHYROXINE 100 MCG/5 ML SYR IVP SCH (11:06)
[2016-11-23 11:16] VITALS: BP 127/86; PULSE 82; RESP 18; TEMP 98.9; O2SAT 93
--- NOTE | 2016-11-23 14:06 | ASDISCHSUM ---
Discharge Information Plan Status:Home with No Needs Medically Cleared to Leave: Discharge Date:11/23/2016 01:18 PM CM D/C Disposition:Home, Routine, Self-Care ADT D/C Disposition:Home, Routine, Self-Care Projected Discharge Date:11/19/2016 12:00 AM Transportation at D/C: Discharge Delay Reason: Follow-Up Date:11/19/2016 12:00 AM Discharge Slot: Final Diagnosis: Placement Information Patient Contact Information Contact Name:GIRISH Relationship:Mother Address:[facility] [facility] Work Phone: City:[facility] Phone: [facility]/Zip Code:[place] [address] Email: Financial Information Financial Class:[facility] Primary [facility] Desc[facility] Primary Plan Number:[id number] Secondary Plan Desc: Secondary Plan Number: Assessment Information [facility] CM Progress Note CM Note CM Note Notes: Pt was admitted with acute pancreatitis which may be related to gallstones. Surgery input requested. Hx HTN. CM will follow for any d/c needs. Date Signed: 11/17/2016 03:30 PM Electronically Signed By:SAJI Randall [facility] CM Progress Note CM Note CM Note Notes: Spoke w/RN, anticipate will dc home independent when medically stable. CM available for any changes. Date Signed: 11/21/2016 04:15 PM Electronically Signed By:Moni Murphy RN Intervention Information
== END 2016-11-23 13:18 | disposition home or self-care (01) | DRG 419 ==
LOC: CED 21:02 → CEDHOLD 22:47 → F3E 11-17 01:41
PROVIDERS: ADMIT Family Medicine; ATTEND Family Medicine
PROC: 0F798ZZ Dilation of Common Bile Duct, Via Natural or Artificial Opening Endoscopic (ICD-10-PCS; 2016-11-18)
PROC: B4131ZZ Fluoroscopy of Splenic Arteries using Low Osmolar Contrast (ICD-10-PCS; 2016-11-18)
PROC: BF131ZZ Fluoroscopy of Gallbladder and Bile Ducts using Low Osmolar Contrast (ICD-10-PCS; principal; 2016-11-19 15:15)
PROC: 0FT44ZZ Resection of Gallbladder, Percutaneous Endoscopic Approach (ICD-10-PCS; principal; 2016-11-19 15:15)
PROC: 0F798ZZ Dilation of Common Bile Duct, Via Natural or Artificial Opening Endoscopic (ICD-10-PCS; 2016-11-21)
PROC: BF131ZZ Fluoroscopy of Gallbladder and Bile Ducts using Low Osmolar Contrast (ICD-10-PCS; 2016-11-21)
DX: K85.10 Biliary acute pancreatitis without necrosis or infection (principal); K80.70 Calculus of gallbladder and bile duct without cholecystitis without obstruction; D72.829 Elevated white blood cell count, unspecified; N28.89 Other specified disorders of kidney and ureter; R73.9 Hyperglycemia, unspecified; E03.9 Hypothyroidism, unspecified; R74.0 Nonspecific elevation of levels of transaminase and lactic acid dehydrogenase [LDH]; L70.9 Acne, unspecified; E78.5 Hyperlipidemia, unspecified; J30.2 Other seasonal allergic rhinitis; D47.3 Essential (hemorrhagic) thrombocythemia
CPT/HCPCS: 76705-PO; 80053-PO; 81003-PO; 82248-PO; 83690-PO; 84703-PO; 85025-PO; 85610-PO; 85730-PO; 96374; A9585; G0472; J0690; J1100; J1170; J1200; J1335; J1610; J1650; J1885; J2001; J2060; J2250; J2405; J2543; J2550; J2704; J3010; Q9961; Q9967

== ENCOUNTER → 2016-12-10 | Outpatient (CLI) | payer OTHER | LOC: CIMAGING 12:37 | PROVIDERS: ATTEND Family Medicine | DX: N28.1 Cyst of kidney, acquired (principal) | CPT/HCPCS: 76770-PO ==

== ENCOUNTER → 2017-12-11 | Outpatient (CLI) | payer OTHER | LOC: CIMAGING 08:42 | PROVIDERS: ATTEND Family Medicine | DX: Z09 Encounter for follow-up examination after completed treatment for conditions other than malignant neoplasm (principal); Z87.448 Personal history of other diseases of urinary system | CPT/HCPCS: 76770-PO ==